=== PATIENT | female | born 1990 | race Caucasian/White ===

== ENCOUNTER 2018-02-22 17:21 | Emergency (ER) | payer OTHER ==
[~2018-02-22] VITALS: Ht 170.2 cm; Wt 136.1 kg
--- OUTSIDE RECORDS SUMMARY | 2018-02-22 17:24 | XMS REPORT ---
Author Author [facility] Address Unknown Phone Unavailable Care Team Providers Care Outside Deliverer Name Role Phone Kenny Marks Unavailable Unavailable Donte Bradley Unavailable Unavailable Jai Balbuena Unavailable Unavailable Problems This patient has no known problems. Allergies, Adverse Reactions, Alerts This patient has no known allergies or adverse reactions. Medications This patient has no known medications. Results Test Description Test Time Test Comments Text Results Atomic Results Result Comments Complete blood count (CBC) without differential 2017-07-21 08:18:00 White blood cell count (test qnfs=UBF5352) 10.8 4.3-10.9 Blood erythrocytes count (number/volume) (test jjgx=19241-3) 4.45 M/ul 3.86-4.86 Hemoglobin measurement (test pxsf=RTG6689) 12.7 g/dL 12.0-15.0 Blood hematocrit (volume fraction) (test xcip=62305-7) 38.4 % 36.0-45.0 MCV (test ywdn=80006-2) 86.2 fL 80-100 MCH (test dczj=76200-7) 28.5 pg 27.0-35.0 MCHC (test code=MCHC) 33.1 g/dL 32.0-36.0 Platelets (test code=PLT) 338 152-406 Red Cell Distribution Width (test code=RDW) 15.3 % 12.1-15.2 Blood platelet mean volume (test uvph=88636-9) 9.6 fL 7.6-11.3 Comment Bed:17Urine drug xxefhr9732-42-87 22:42:00* Test Item Value Reference Range Comments Phencyclidine, Urine (test code=PCP) NEGATIVE Benzodiazepines (test code=BZO) NEGATIVE Urine cocaine detection by screening method (test qjzh=99950-0) Positive Amphetamines,Urine (test code=AMP) NEGATIVE Urine fkpbd-5-xbszmlqlmsamjgbotmvm (THC) measurement (test btlx=AHG9479) NEGATIVE Urine opiates detection (test zqng=5985-5) Negative Barbiturates (test code=BAR) NEGATIVE Oxycodone, Urine (test code=OXY) Not Done Urine methylenedioxymethamphetamine (MDMA) detection (test rhlr=54155-1) Negative This urine was qualitatively tested for the following drugs at the cut-off levels listed: DRUG CUT-OFF LEVEL ---- PHENCYCLIDINE 25 ng/mL BENZODIAZEPINES 200 ng/mL COCAINE 300 ng/mL AMPHETAMINES 1000 ng/mL TETRAHYDROCANNABINOL 50 ng/mL OPIATES 2000 ng/mL BARBITURATES 200 ng/mL OXYCODONE 300 ng/mL ECSTASY 500 ng/mL These are only preliminary test results. Positive results have not been confirmed. For a confirmed analytical result, gas chromatography/mass spectrometry is the preferred method. Results are to be used only for medical (i.e. treatment) purposes. Unconfirmed screening results must not be used for non-medical purposes (e.g. employment testing, legal testing). Comment Bed:30 Test Ordered to Rule Out VTE/DVT? NUrine test at point of [id number] 22:32:00* Test Item Value Reference Range Comments Urine Test (test code=UPG) NEG NEG Urine specific gravity measurement (test bqhz=2261-6) >1.030 1.005-1.030 Tested [place]: [facility] [place]: NEG GLUCOSE: NEG KETONES: NEG LEUKOCYTES: NEG NITRITE: NEG PH: 5.5 PROTEIN: NEG cmc NEG cmc NEG NEG NEG NEG NEG 5.5 NEG Y >1.030Urine dipstick testing at kauln-zq-uctv6933-05-10 22:32:00* Test Item Value Reference Range Comments Urine glucose detection (test vyrg=1034-0) Negative NEG Urine Ketones (test code=UKET) NEGATIVE NEG Urine blood detection (test mwdf=41503-6) Negative NEG Urine pH (test mrzq=7786-5) 5.5 5.0-7.0 Urinalysis with microscopy (test prgh=30693-4) NEGATIVE NEG Urine Nitrate (test code=UNIT) NEGATIVE NEG Urine Leukocyte Esterase (test code=UESTR) NEGATIVE NEG Tested by: [facility] [place]: NEG GLUCOSE: NEG KETONES: NEG LEUKOCYTES: NEG NITRITE: NEG PH: 5.5 PROTEIN: NEG cmc NEG cmc NEG NEG NEG NEG NEG 5.5 NEG Y >1.030Prothrombin time (PT) with international normalized ratio (INR)2017-07-20 22:27:00* Test Item Value Reference Range Comments PT Prothrombin Time (test code=PROTIME) 11.9 s 9.5-12.5 INR in Blood by Coagulation assay (test wvbs=91989-2) 1.01 Monitor pts using INR value (not prothrombin time) INR Coumadin Therapy: Low Range (prophylaxis) 2.0-3.0 High Range (high risk of clot formation) 2.5-3.5 Test Ordered to Rule Out VTE/DVT? N Test Ordered to Rule Out VTE/DVT? NPTT, Activated Partial Dztbni3723-89-15 22:27:00* Test Item Value Reference Range Comments PTT, Activated Partial Thromb (test code=PTT) 27.6 s 24.3-36.9 Test Ordered to Rule Out VTE/DVT? N Test Ordered to Rule Out VTE/DVT? NSerum or plasma ethanol tyrpfvimp0900-92-83 22:24:00Test Ordered to Rule Out VTE/DVT? N< 10^^SCT^< 10(No normal range; <50 has limited clinical effect)Basic Metabolic Cepba2972-01-90 22:24:00* Test Item Value Reference Range Comments Sodium level (test xkhq=NNG2269) 141 meq/L 135-145 3.7 Chloride measurement (test lndc=UJL7653) 106 meq/L 101-111 Bicarbonate (test code=CO2) 27 meq/L 21-31 Glucose measurement (test kvrp=LIA2423) 112 mg/dL 65-120 ADA Clinical Practice Recommendation: <100 mg/dl=Normal Fasting Glucose BUN Bld-mCnc (test zpvv=4961-5) 11 mg/dL 6-20 Creatinine measurement (test qtne=JJP4206) 0.73 mg/dL 0.44-1.00 The creatinine method used has been calibrated to be traceable to Isotope dilution Mass Spectrometry (IDMS). For more information: www.nkdep.nih.gov Estimated glomerular filtration rate (GFR) determination (test wevb=48377-3) >90 mL =/>90 FOR CHRONIC KIDNEY DISEASE: GFR STAGE DESCRIPTION=/>90 STAGE 1 NORMAL--OR-- MINIMAL KIDNEY DAMAGE WITH NORMAL GFR 60-89 STAGE 2 MILD DECREASE IN GFR 30-59 STAGE 3 MODERATE DECREASE IN GFR 15-29 STAGE 4 SEVERE DECREASE IN GFR <15 STAGE 5 KIDNEY FAILURE The Glomerular Filtration Rate (GFR) has been calculated using the IDND-Traceable MDRD Study Equation. Calcium Level (test code=CA) 9.5 mg/dL 8.5-10.5 Test Ordered to Rule Out VTE/DVT? NLiver (Hepatic) Xkridjqo9757-28-76 22:24:00* Test Item Value Reference Range Comments Aspartate aminotransferase (AST) measurement (test tblb=PYO9666) 30 [iU]/L 10-42 ALT/SGPT (test code=SGPT) 59 [iU]/L 10-60 Alkaline Phosphatase (test code=ALK) 86 [iU]/L 42-121 Bilirubin total (test ghww=HQF3538) 0.4 mg/dL 0.3-1.2 Bilirubin direct (test fzch=8762-9) <0.1 mg/dL 0-0.2 Serum total protein measurement (test tseq=3594-0) 7.4 g/dL 6.0-8.3 Albumin measurement (test tebl=QDM9144) 3.7 g/dL 3.2-5.5 Globulin (test code=GLOB) 3.7 g/dL 2.3-3.5 Albumin/Globulin Ratio (test code=A/G) 1.0 1.1-1.8 Test Ordered to Rule Out VTE/DVT? NAcetaminophen cmetindlwzw3143-49-37 22:24:00 * Test Item Value Reference Range Comments Acetaminophen measurement (test hemb=WJC7656) < 10.0 10-30 PANIC VALUES: AFTER 4 HRS. INGESTION RESULT >200 AFTER 12 HRS. INGESTION RESULT >50 Test Ordered to Rule Out VTE/DVT? NSalicylates Ubiao8277-27-52 22:24:00* Test Item Value Reference Range Comments Salicylates Level (test code=CRYSTAL) < 4.0 <30 Test Ordered to Rule Out VTE/DVT? NComplete blood count (CBC) with automated white blood cell (WBC) wydkypbiwxqp6799-51-58 22:08:00* Test Item Value Reference Range Comments White blood cell count (test lfaz=ABC7315) 14.4 4.3-10.9 Blood erythrocytes count (number/volume) (test spua=38945-9) 4.57 M/ul 3.86-4.86 Hemoglobin measurement (test jfix=THK8670) 13.2 g/dL 12.0-15.0 Blood hematocrit (volume fraction) (test nxjl=37542-5) 39.1 % 36.0-45.0 MCV (test czvr=74622-2) 85.6 fL 80-100 MCH (test yrxd=10572-5) 28.9 pg 27.0-35.0 MCHC (test code=MCHC) 33.8 g/dL 32.0-36.0 Platelets (test code=PLT) 388 152-406 Red Cell Distribution Width (test code=RDW) 15.4 % 12.1-15.2 Blood platelet mean volume (test rtkq=74233-1) 9.4 fL 7.6-11.3 Neutrophils % (test code=LACEY%) 62.8 % 41.7-73.7 Lymphocytes/leuk NFr Bld (test kgli=06996-6) 27.7 % 15.3-44.8 Monocyte percentage (test gfwy=7867-1) 7.1 % 3.3-12.3 Eosinophil % (test bsxa=562-2) 1.7 % 0-4.4 Basophil % (test eyld=66808-4) 0.7 % 0-1.3 Absolute neutrophil count (test jfny=646-3) 9.1 1.8-8.0 Absolute lymphocyte count (test gkhm=91978-3) 4.0 0.7-4.9 Absolute monocyte count (test wzaz=774-8) 1.0 0.1-1.3 Absolute Eosinophils (test code=EOA) 0.2 0-0.5 Absolute Basophils (test code=BASA) 0.1 0-0.5 Urine test at point of yzfh6895-15-04 22:26:00* Test Item Value Reference Range Comments Urine Test (test code=UPG) NEG NEG Urine specific gravity measurement (test dyrp=4965-3) 1.030 1.005-1.030 Tested by: cb BLOOD: NEG GLUCOSE: NEG KETONES: TRACE LEUKOCYTES: NEG NITRITE: NE G PH: 6.0 PROTEIN: TRACE cb NEG cb NEG NEG TRACE NEG NEG 6.0 TRACE Y 1.030Urine dipstick testing at ghzkn-jc-srpj1543-05-02 22:26:00* Test Item Value Reference Range Comments Urine glucose detection (test wfdd=8437-7) Negative NEG Urine Ketones (test code=UKET) TRACE NEG Urine blood detection (test obat=20243-7) Negative NEG Urine pH (test lczi=9542-0) 6.0 5.0-7.0 Urinalysis with microscopy (test fbhv=69824-5) TRACE NEG Urine Nitrate (test code=UNIT) NEGATIVE NEG Urine Leukocyte Esterase (test code=UESTR) NEGATIVE NEG Tested by: cb BLOOD: NEG GLUCOSE: NEG KETONES: TRACE LEUKOCYTES: NEG NITRITE: NE G PH: 6.0 PROTEIN: TRACE cb NEG cb NEG NEG TRACE NEG NEG 6.0 TRACE Y 1.030Urine test at point of [id number] 23:52:00* Test Item Value Reference Range Comments Urine Test (test code=UPG) NEG NEG Urine specific gravity measurement (test biuf=1912-9) >1.030 1.005-1.030 Tested by: verona RESULT: NEG Comment Bed:15 verona NEG verona NEG NEG NEG NEG NEG 6.0 NEG Y >1.030Urine dipstick testing at tqsmi-cr-mzrv1711-04-08 23:52:00* Test Item Value Reference Range Comments Urine glucose detection (test skdl=9685-1) Negative NEG Urine Ketones (test code=UKET) NEGATIVE NEG Urine blood detection (test yiyd=53782-3) Negative NEG Urine pH (test ljht=6231-1) 6.0 5.0-7.0 Urinalysis with microscopy (test wrcz=13214-4) NEGATIVE NEG Urine Nitrate (test code=UNIT) NEGATIVE NEG Urine Leukocyte Esterase (test code=UESTR) NEGATIVE NEG Tested by: [facility]ona RESULT: NEG Comment Bed:15 verona NEG verona NEG NEG NEG NEG NEG 6.0 NEG Y >1.030Urine drug xvkmrd0516-52-87 23:35:00* Test Item Value Reference Range Comments Phencyclidine, Urine (test code=PCP) NEGATIVE Benzodiazepines (test code=BZO) NEGATIVE Urine cocaine detection by screening method (test ovrx=35844-2) Positive Amphetamines,Urine (test code=AMP) NEGATIVE Urine femog-1-ftxrcksuxqhcrizqxneg (THC) measurement (test paxj=KRO5682) NEGATIVE Urine opiates detection (test vosn=4867-7) Negative Barbiturates (test code=BAR) NEGATIVE Oxycodone, Urine (test code=OXY) NEGATIVE Urine methylenedioxymethamphetamine (MDMA) detection (test fsho=55730-3) Negative This urine was qualitatively tested for the following drugs at the cut-off levels listed: DRUG CUT-OFF LEVEL ---- PHENCYCLIDINE 25 ng/mL BENZODIAZEPINES 200 ng/mL COCAINE 300 ng/mL AMPHETAMINES 1000 ng/mL TETRAHYDROCANNABINOL 50 ng/mL OPIATES 2000 ng/mL BARBITURATES 200 ng/mL OXYCODONE 300 ng/mL ECSTASY 500 ng/mL These are only preliminary test results. Positive results have not been confirmed. For a confirmed analytical result, gas chromatography/mass spectrometry is the preferred method. Results are to be used only for medical (i.e. treatment) purposes. Unconfirmed screening results must not be used for non-medical purposes (e.g. employment testing, legal testing). Comment Bed:15 Test Ordered to Rule Out VTE/DVT? NSerum or plasma ethanol wzgrowolt8562-99-76 23:25:00Test Ordered to Rule Out VTE/DVT? N< 10^^SCT^< 10(No normal range; <50 has limited clinical effect)Basic Metabolic Gcceh6972-36-40 23:25:00* Test Item Value Reference Range Comments Sodium level (test ukkj=ZEV0348) 138 meq/L 135-145 3.9 Chloride measurement (test wbkn=PGY4414) 107 meq/L 101-111 Bicarbonate (test code=CO2) 25 meq/L 21-31 Glucose measurement (test iikt=CRA3689) 124 mg/dL 65-120 ADA Clinical Practice Recommendation: <100 mg/dl=Normal Fasting Glucose BUN Bld-mCnc (test farq=7917-7) 9 mg/dL 6-20 Creatinine measurement (test mhlm=PPS8305) 0.76 mg/dL 0.44-1.00 The creatinine method used has been calibrated to be traceable to Isotope dilution Mass Spectrometry (IDMS). For more information: www.nkdep.nih.gov Estimated glomerular filtration rate (GFR) determination (test nzel=59844-6) >90 mL =/>90 FOR CHRONIC KIDNEY DISEASE: GFR STAGE DESCRIPTION=/>90 STAGE 1 NORMAL--OR-- MINIMAL KIDNEY DAMAGE WITH NORMAL GFR 60-89 STAGE 2 MILD DECREASE IN GFR 30-59 STAGE 3 MODERATE DECREASE IN GFR 15-29 STAGE 4 SEVERE DECREASE IN GFR <15 STAGE 5 KIDNEY FAILURE The Glomerular Filtration Rate (GFR) has been calculated using the IDMS-Traceable MDRD Study Equation. Calcium Level (test code=CA) 8.7 mg/dL 8.5-10.5 Test Ordered to Rule Out VTE/DVT? NLiver (Hepatic) Recubbxw7670-31-86 23:25:00* Test Item Value Reference Range Comments Aspartate aminotransferase (AST) measurement (test evle=CPC2339) 27 [iU]/L 10-42 ALT/SGPT (test code=SGPT) 49 [iU]/L 10-60 Alkaline Phosphatase (test code=ALK) 88 [iU]/L 42-121 Bilirubin total (test qgbu=DCE6049) < 0.2 0.3-1.2 Bilirubin direct (test lnsl=2248-0) <0.1 mg/dL 0-0.2 Serum total protein measurement (test zikl=2901-4) 6.6 g/dL 6.0-8.3 Albumin measurement (test dbts=FKS3267) 3.3 g/dL 3.2-5.5 Globulin (test code=GLOB) 3.3 g/dL 2.3-3.5 Albumin/Globulin Ratio (test code=A/G) 1.0 1.1-1.8 Test Ordered to Rule Out VTE/DVT? NAcetaminophen nnihyzzofoe2571-74-41 23:25:00 * Test Item Value Reference Range Comments Acetaminophen measurement (test ztia=MSV6154) < 10.0 10-30 PANIC VALUES: AFTER 4 HRS. INGESTION RESULT >200 AFTER 12 HRS. INGESTION RESULT >50 Test Ordered to Rule Out VTE/DVT? NSalicylates Omrer0121-66-92 23:25:00* Test Item Value Reference Range Comments Salicylates Level (test code=CRYSTAL) < 4.0 <30 Test Ordered to Rule Out VTE/DVT? NProthrombin time (PT) with international normalized ratio (INR)2017-06-18 23:15:00* Test Item Value Reference Range Comments PT Prothrombin Time (test code=PROTIME) 11.3 s 9.5-12.5 INR in Blood by Coagulation assay (test vvka=81969-8) 0.96 Monitor pts using INR value (not prothrombin time) INR Coumadin Therapy: Low Range (prophylaxis) 2.0-3.0 High Range (high risk of clot formation) 2.5-3.5 Test Ordered to Rule Out VTE/DVT? N Test Ordered to Rule Out VTE/DVT? NPTT, Activated Partial Hjxpmi1602-60-37 23:15:00* Test Item Value Reference Range Comments PTT, Activated Partial Thromb (test code=PTT) 25.3 s 24.3-36.9 Test Ordered to Rule Out VTE/DVT? N Test Ordered to Rule Out VTE/DVT? NComplete blood count (CBC) with automated white blood cell (WBC) nehcgzoavprh2132-79-14 23:09:00* Test Item Value Reference Range Comments White blood cell count (test yoiu=VZT6988) 14.2 4.3-10.9 Blood erythrocytes count (number/volume) (test vgmt=78083-0) 4.40 M/ul 3.86-4.86 Hemoglobin measurement (test kuer=HVL4288) 12.5 g/dL 12.0-15.0 Blood hematocrit (volume fraction) (test olef=00981-3) 37.8 % 36.0-45.0 MCV (test smgj=52694-0) 85.8 fL 80-100 MCH (test xzko=19350-1) 28.3 pg 27.0-35.0 MCHC (test code=MCHC) 33.0 g/dL 32.0-36.0 Platelets (test code=PLT) 361 152-406 Red Cell Distribution Width (test code=RDW) 15.5 % 12.1-15.2 Blood platelet mean volume (test xpnn=24291-2) 9.0 fL 7.6-11.3 Neutrophils % (test code=LACEY%) 59.8 % 41.7-73.7 Lymphocytes/leuk NFr Bld (test etaf=67562-8) 29.2 % 15.3-44.8 Monocyte percentage (test hvpe=9730-9) 7.8 % 3.3-12.3 Eosinophil % (test pvlc=101-8) 2.1 % 0-4.4 Basophil % (test prtc=99984-6) 1.1 % 0-1.3 Absolute neutrophil count (test bmre=470-0) 8.5 1.8-8.0 Absolute lymphocyte count (test bnhb=02670-7) 4.2 0.7-4.9 Absolute monocyte count (test jznw=527-8) 1.1 0.1-1.3 Absolute Eosinophils (test code=EOA) 0.3 0-0.5 Absolute Basophils (test code=BASA) 0.2 0-0.5
[2018-02-22] MEDS ORDERED: FAMOTIDINE 20 MG TAB PO ONE (18:30)
[2018-02-22] MEDS ORDERED: DIPHENHYDRAMINE HCL INJ 50 MG/ML VIAL IM ONE (18:30)
[2018-02-22] MEDS ORDERED: DEXAMETHASONE SOD PHOS 10 MG/1 ML VIAL IM ONE (18:30)
[2018-02-22 18:38] VITALS: BP 128/82
[2018-02-22] MEDS ORDERED: BACITRACIN ZINC 0.9GM TP ONE (18:46)
[2018-02-23] MEDS ORDERED: BACITRACIN ZINC 15 GM OINT TOP SCH (09:00)
[2018-02-23] MEDS ORDERED: BACITRACIN ZINC 0.9GM TP SCH (09:00)
== END 2018-02-22 18:52 | disposition home or self-care (01) ==
LOC: ER 17:21
DX: R21 Rash and other nonspecific skin eruption (principal); L50.0 Allergic urticaria; F31.9 Bipolar disorder, unspecified
CPT/HCPCS: 99282; J1100; J1200